=== PATIENT | female | born 1960 | race Caucasian/White ===

== ENCOUNTER 2018-10-17 06:43 | Observation (INO) | payer OTHER ==
--- NOTE | 2018-10-14 14:33 | EKG ---
[place] [address] [facility] [place] [address] ELECTROCARDIOGRAM REPORT Name: LATOYAABNER Room #: PRE IN ..#: [id number] ������������������ Admission: ������������������ Attend Phys: Michael Baron MD Discharge: ������������������ Date of : 64 Report #: [id number] ����������������������������������������������������������������� [id number] THIS REPORT FOR: //name// [facility] Test Date: 2018-10-14 Test Time: 13:43:21 Pat Name: ABNER KLEIN Department: Room: Gender: F Director Of Clinical Services: Alfonso PALOMO : 1960 Requested By: Michael Baron Order Number: [id number] MD: Maxwell Ewing Measurements Intervals [place] Rate: 67 P: 55 WV: 119 QRS: 28 QRSD: 98 T: 51 QT: 368 QTc: 389 Interpretive Statements Sinus rhythm Borderline short WV interval No previous ECG available for comparison Electronically Signed On 10-14-2018 14:32:52 CDT by Maxwell Ewing [email or web address] ��������������������������������������������� <ELECTRONICALLY SIGNED> ���������������������������������������� By: Maxwell Ewing MD ��������������������������������������������� 10/14/18 1432 1343 1343 Maxwell Ewing MD /SAUL
[~2018-10-17] VITALS: Ht 152.4 cm; Wt 81.6 kg
--- NOTE | ~2018-10-17 | O ---
[facility] [place] [place] [address] OPERATIVE REPORT Name: ABNER KLEIN Room #: 150-13 [facility]#: [id number] Admission: 10/17/18 ������������������ Attend Phys: Michael Baron MD Discharge: ������������������ Date of : 64 Report #: [id number] THIS REPORT FOR: //name// CC: Salma Baron DATE OF SERVICE: 10/17/2018 PREOPERATIVE DIAGNOSIS: Right knee osteoarthritis. POSTOPERATIVE DIAGNOSIS: Right knee osteoarthritis. PROCEDURE: Right total knee arthroplasty using Navio robotic assistance. SURGEON: Michael Baron MD. EDI DEVELOPER: Devika George PA-C. ANESTHESIA: LMA with an adductor canal block. INDICATION FOR EDI DEVELOPER: Throughout the case extensive retraction and manipulation of the knee was required. This was afforded to me by my food service assistant. IMPLANTS: Dodd and Nephew size 4 Journey II BCS Oxinium femur, a size 2 tibia, a size 32 patella and a size 10 polyethylene. TOURNIQUET TIME: 57 minutes. ESTIMATED BLOOD LOSS: 25 mL. COMPLICATIONS: None. SPECIMENS: None. CONDITION UPON LEAVING THE OPERATING ROOM: Stable. INDICATION FOR PROCEDURE: The patient is a 58-year-old female with right knee osteoarthritis. She has failed conservative measures for this and after discussion with her, she elected for right total knee arthroplasty. DESCRIPTION OF PROCEDURE: Risks, benefits, alternatives and complications were discussed in detail with the patient including but not limited to risk of anesthesia, risk of damage to nerves, arteries, blood vessels, risk for infection, bleeding, risk for continued knee pain and need for reoperation. Informed consent was obtained from the patient. The right knee was appropriately marked in the preoperative holding area. Adductor canal block was [facility] [address] [place] [address] OPERATIVE REPORT Name: ABNER KLEIN Room #: 150-13 [facility] Binu#: [id number] Admission: 10/17/18 ������������������ Attend Phys: Michael Baron MD Discharge: ������������������ Date of : 64 Report #: [id number] placed by anesthesia. IV Ancef was given for preoperative antibiotics. She was brought to the operating room and placed in the supine position on the operating room table. LMA anesthesia was induced without complication. Tourniquet was placed on the right thigh. Right lower extremity was prepped and draped in normal sterile fashion. Timeout was performed properly identifying the patient and procedure as well as the instrumentation and implants. All in the operating room were in agreement. Right lower extremity was exsanguinated, tourniquet was inflated. Tourniquet time was 57 minutes. Standard midline approach to the knee was made with 10 blade through the skin. Dissection was taken down sharply to the fascia and deep flaps were developed medially and laterally. Fresh 10 blade was used to make a medial parapatellar arthrotomy and the knee was inspected. There was severe tricompartmental osteoarthritis. ACL and PCL were removed sharply. Reference pins were placed in the femur and the tibia. The knee was digitally mapped using the Quantum robotic system. We sized the size 4 femur and a size 2 tibia with a 10 polyethylene spacer. After acceptance of the intraoperative plan, the distal femoral cut was made with a Navio bur. The femoral cutting block was then pinned in place and the femoral cuts were made. Attention was then turned to the tibia. The remainder of the menisci removed with Bovie cautery. Tibial resection guide was pinned in place using the Navio assistance for placement and tibial resection was made. After this, flexion and extension gaps were checked and found to have good balance in flexion and extension both medially and laterally. Tibia was sized and found to be a size 2. A size 2 tibial trial was placed, pinned and punched. A size 4 femoral trial was placed and the box cut was made. This was then trialed with a size 9 and then a size 10 polyethylene. Size 10 polyethylene had a mm laxity medially and laterally throughout range of motion both digitally as well as manually. The 9 mm was taken off the posterior surface of the patella and a size 32 patellar trial button was placed. Knee was taken through range of motion, found to be stable, found to have good patellar tracking. After this, trial components were removed. Bony ends were thoroughly irrigated with normal saline. A final size 2 tibia and size 4 Journey II BCS Oxinium femur and a size 32 patella were cemented in place using standard cementation techniques. While the cement cured, a periarticular injection consisting of morphine, ropivacaine, epinephrine and Toradol was placed around the knee joint capsule. After the cement cured, the tourniquet was deflated. Consent was obtained with Bovie cautery. Final size 10 polyethylene was placed. A gram of vancomycin was placed deep in the joint. The fascia was closed with 0 Vicryl, skin was closed with 2-0 Vicryl, 3-0 Monocryl. Dermabond and TAHRI dressing was applied. The patient tolerated this procedure well and went to the recovery room under care of Anesthesia postoperatively. ��������������������������������������������� ���������������������������������������� By: ��������������������������������������������� 1609 1638 Michael Baron MD /yuri
[~2018-10-17 06:43] MED LIST: ASPIRIN325 PO; MULTIVITAMINS PO
[2018-10-17 12:49] VITALS: BP 146/77
[2018-10-17 17:36] VITALS: BP 115/73
--- NOTE | 2018-10-17 18:16 | NUR ---
PATIENT ADMITTED TO ROOM 417, ORDER DR. GARSIA, POST-OP RIGHT KNEE REPLACEMENT. LIMB ALERT, RIGHT SIDE, HX OF LUMPECTOMY 2010. PAIN RATED 4 AT THIS TIME. IV FLUID ORDERED D-08/18 AT 100/CC HOUR. ALSO HAS MULTIPLE MEDICATIONS ORDERED, SEE MAR. PATIENT REGULAR DIET, EATING DINNER AT THIS TIME.
[2018-10-17 18:39] VITALS: BP 104/61
[2018-10-17 23:43] VITALS: BP 112/62
--- NOTE | 2018-10-18 03:46 | NUR ---
ASSUMED CARE AT 1900, ASSESSMENT COMPLETED. PT VERY DROWSY, BUT AROUSEABLE AND ABLE TO ANSWER ALL QUESTIONS. REPORTS MILD NUMBNESS IN RLE R/T NERVE BLOCK, PAIN IS A 4 OF 10; TAHIR DRESSING TO RIGHT KNEE IS C/D/I, NO DRAINAGE PRESENT ON DRESSING. MINIMAL SWELLING OR REDNESS NOTED IN RIGHT KNEE, ICE PACK IN PLACE. TETO HOSE AND SCD'S ON. IV FLUIDS INFUSING. PT DENIES NAUSEA OR SOB. DID NOT FEEL URGE TO URINATE, BLADDER SCAN EARLY IN SHIFT SHOWED ABOUT 300 ML; PT HAS SINCE BEEN UP TO BSC TWICE AND VOIDED ABOUT 300 ML EACH TIME. NO OTHER CONCERNS, WILL CONTINUE TO MONITOR.
[2018-10-18 04:13] VITALS: BP 114/60
[2018-10-18 06:05] LABS: HEMATOCRIT 38.9 % (37.0-47.0); MCH 31.4 pg (26.0-34.0); MCHC 33.5 g/dL (28.0-37.0); MCV 93.8 fL (80.0-100.0); RBC 4.15 mil/uL (4.20-5.00); RDW 12.8 % (10.5-14.5); WBC 17.2 thou/uL (4.0-11.0)
[2018-10-18 07:16] VITALS: BP 110/60
[2018-10-18 08:00] VITALS: BP 110/60
[2018-10-18 12:00] VITALS: BP 110/60
--- NOTE | 2018-10-18 14:24 | NUR ---
ASSESSMENT-PT LIVES IN AN APT ALONE. SHE HAS HER BROTHER IN THE AREA. PT SAYS SHE HAD AN OUTPT THERAPY APPT AT [facility] TODAY BUT HAD TO CANCEL IT TODAY. PT WILL CALL TO RESCHEDULE. PT HAS A ROLLER WALKER ALREADY. PT VOICES NO OTHER DC CONCERNS AT THIS TIME. FOLLOWING TO ASSIST WITH DC PLANNING.
[2018-10-18 15:02] VITALS: BP 110/60
--- NOTE | 2018-10-18 16:06 | NUR ---
PATIENT DOING WELL TODAY. VOIDING WITHOUT DIFFICULTY AND IN ADEQUATE AMOUNTS. PAIN WELL CONTROLLED. TOLERATING REGULAR DIET. DRINKING LOTS OF LIQUIDS. ICE PACK IN PLACE TO RT KNEE. TAHIR DRESSING TO RT KNEE C/D/I AND COMPRESSED. PATIENT TOLERATED PHYSICAL THERAPY WELL WITH USE OF WALKER. STANFORD GARCIAS CALLED TO OK DISCHARGE AFTER THERAPY TODAY. CLAUDE OK'D DISCHARGE. DISCHARGE INSTRUCTIONS GIVEN. PATIENT'S DTR STAYING WITH HER AT HOME FOR A FEW DAYS. DISMISSED IN GOOD CONDITION.
[2018-10-18 16:10] VITALS: BP 110/60
== END 2018-10-18 16:28 | disposition home or self-care (01) ==
LOC: 4E 06:43 → OR 06:43 → TBA 06:43 → PRE 08:08 → EDSTATUS 15:03 → OR 15:05 → 4E 17:29 → OR 17:56 → 4E 17:57 → ENTRNSPT 10-18 15:27 → EDTRNSPTSTS 10-18 15:29 → 4E 10-18 16:28
PROVIDERS: ADMIT Orthopaedic Surgery
DX: M17.11 Unilateral primary osteoarthritis, right knee (principal); Z88.5 Allergy status to narcotic agent; Z88.8 Allergy status to other drugs, medicaments and biological substances
CPT/HCPCS: 50010; 50101; 50415; 50954; 51130; 51225; 51771; 53000; 53078; 54118; 55372; 56527; 56528; 57095; 57103; 57110; 57127; 57180; 62110; 62900; 70005

== ENCOUNTER 2019-02-21 08:15 | Inpatient (IN) | payer OTHER ==
[~2019-02-21] VITALS: Ht 165.1 cm; Wt 77.1 kg
[2019-02-21] VITALS (15 sets, daily range): BP systolic 110–153; BP diastolic 55–83
--- NOTE | ~2019-02-21 | D ---
[facility] [place] [address] DISCHARGE SUMMARY Name: ABNER KLEIN Room #: 206-P ADM IN M.R.#: [id number] Admission: 02/21/19 Attend Phys: Mick Moy MD Discharge: Date of : 64 Report #: [id number] THIS REPORT FOR: //name// CC: Salma Moy DATE OF SERVICE: 02/22/2019 ADMITTING DIAGNOSIS: Acute inferior wall myocardial infarction. DISCHARGE DIAGNOSES: 1. Acute inferior wall myocardial infarction. 2. Coronary artery disease. 3. Hypertension. 4. Dyslipidemia. 5. Tobacco dependence. PROCEDURES PERFORMED: 1. Left heart catheterization. 2. Percutaneous transluminal coronary angioplasty and stenting of the right coronary artery. DISCHARGE DIET: [employer] step 1 diet. DISCHARGE MEDICATIONS: Atorvastatin 40 mg daily, aspirin 325 mg daily, Effient 10 mg daily, lisinopril 2.5 mg at bedtime. FOLLOWUP: 1. Dr. Moy in 4 weeks. 2. Jeff nurse practitioner in 7 days. BRIEF CLINICAL HISTORY: See history and physical in the chart. HOSPITAL COURSE: The patient was admitted directly from the Emergency Room with acute inferior wall myocardial infarction. She was taken to the finishing lab technician emergently and underwent percutaneous transluminal coronary angioplasty and stenting of the right coronary artery. Post-procedure, she remained electrically and hemodynamically stable with preserved ejection fraction by echocardiography. She was started on medications, according to the appropriate guidelines, which she tolerated well. She denied any significant recurrent symptomatology while ambulating. She remained electrically and hemodynamically stable. She requested to go home and in view of electrical stability and no significant recurrent symptomatology, she is being discharged to home in [facility] [address] [place] [address] DISCHARGE SUMMARY Name: ABNER KLEIN Room #: 206-P ADM IN M.R.#: [id number] Admission: 02/21/19 Attend Phys: Mick Moy MD Discharge: Date of : 64 Report #: [id number] improved and stable condition to follow up with previously stated discharge instructions and medications. By: 1536 1706 Dequan Cordoba MD /nt
[2019-02-21 08:33] LABS: BASOPHILS 0.8 % (0.0-2.0); EOSINOPHILS 0.9 % (0.0-3.0); HEMATOCRIT 45.9 % (37.0-47.0); HEMOGLOBIN 15.1 gm/dL (12.0-15.0); LYMPHOCYTES 51.4 % (24.0-44.0); MCH 30.5 pg (26.0-34.0); MCV 92.4 fL (80.0-100.0); MONOCYTES 5.8 % (1.0-8.0); PLATELET COUNT 273 thou/uL (150-400); POLYS 41.1 % (36.0-66.0); RBC 4.96 mil/uL (4.20-5.00); RDW 13.9 % (10.5-14.5); WBC 9.6 thou/uL (4.0-11.0)
[2019-02-21 08:40] LABS: ANION GAP 11 mmol/L (7-16); BUN 14 mg/dL (7-18); CALCIUM 9.8 mg/dL (8.5-10.1); CHLORIDE 102 mmol/L (98-107); CO2 25 mmol/L (21-32); CREATININE 1.2 mg/dL (0.6-1.0); GLUCOSE 177 mg/dL (74-106); POTASSIUM 3.5 mmol/L (3.5-5.1); SODIUM 138 mmol/L (136-145)
[2019-02-21 08:49] LABS: TROPONIN-I <0.06 ng/mL (<0.06)
[2019-02-21] MEDS ORDERED: ALLEGRA-D 24 H1 EACH PO (11:33)
--- NOTE | 2019-02-21 13:30 | CATHLAB ---
[facility] [address] [place] [address] INVASIVE PROCEDURE REPORT Name: ABNER KLEIN Room #: 206-P ADM IN .R.#: [id number] Admission: 02/21/19 Attend Phys: Mick Moy MD Discharge: Date of : 64 Report #: [id number] THIS REPORT FOR: //name// APPROVED REPORT Study performed: 02/21/2019 08:40:49 Patient Details Patient Status: In-Patient Room #: The patient is a 59 year-old female Event Personnel Shaggy Ureña RN, Mick Moy Manager Book, Angela Sanders RN RN, Amarilis Del Rosario, Karolina Pineda RTR ScrubCalvin Sherra RTR Scrub, Mick Moy Manager Book Procedures Performed Art Access - R femoral artery* 11248 Initial Mod Sed Same Phys/QHP Gr5y 550213 11453 Mod Sed Same Phys/QHP Ea [id number] Left Heart Cath w/or w/o Coronaries [id number] [facility] CARLEY Revasc AMI Total/Sub Single RCA C9606 AMIREVSING Hemostasis w/ Mynx Indication STEMI (>0 to less than or equal to 6 hours), Dyspnea Risk Factors Obesity, Hypercholesterolemia, Hypertension, Tobacco History () Procedure Narrative The patient was brought emergently to the Cardiac Catheterization Laboratory and was prepped and draped in a sterile manner. The Right Groin^ was infiltrated with 1% Lidocaine subcutaneous anesthesia. A PINNACLE 6FR Sheath #[id number] sheath was inserted into the RFA^. Coronary angiography was performed using coronary diagnostic catheters. The right coronary system was accessed and visualized with a VISTA 6FR JR 4 #[id number] catheter. The left coronary system was accessed and visualized with a JL 4 catheter. The left ventricle was accessed and visualized with a Pigtail catheter. Left ventricular/Aortic Valve gradient assessed via catheter pullback. Left ventriculogram was performed in RITCHIE projection. Pre-demployment femoral angiogram was performed . Closure device was deployed with a 6 Fr Mynx. The patient tolerated the procedure well and there were no complications associated with the procedure. [place] [address] INVASIVE PROCEDURE REPORT Name: ABNER KLEIN Room #: 206-P [facility] IN ..#: [id number] Admission: 02/21/19 Attend Phys: Mick Moy MD Discharge: Date of : 64 Report #: [id number] hematoma. Intraoperative Conscious Sedation Sedation start time: 08:41 Case end Time: 09:40 Versed 2 mg Fluoro Time: 12.29 minutes Dose: DAP 77966.00 cGycm2 1636 mGy Contrast Type and Amount: Visipaque 290 ml Coronary Angiography The patient's coronary anatomy is right dominant. Diagnostic Cath Left Main This is a large caliber vessel, patent with no flow-limiting lesions. LAD This is a moderate size caliber vessel, tortuous as it traverses the anterior wall and wraps around the apex. There is mild to moderate disease in the mid segment, 30-50%. Diagonal 1 This is a patent vessel, with no flow-limiting lesions. Circumflex This is a patent vessel, supplies one OM vessel. OM1 There is mild disease in the proximal segment. Right Coronary This is a dominant vessel with mild to moderate diffuse disease in the proximal segment, 30-40%. At the distal segment just before the bifurcation, there is a total occlusion. R PDA This is a patent vessel, with no flow-limiting lesions. RPLV There are 2 moderate size RPL branches, with no flow-limiting lesions. Left Ventriculography The left ventricle is mildly dilated in size with decreased contractility. The left ventricular ejection fraction is estimated to be 35%. There is hypokinesis of the inferior wall. Hemodynamics The aortic pressure is 181/89 mmHg with a mean of 123 mmHg. The left ventricular pressure is 149/2 mmHg with a mean of mmHg. The left ventricular end diastolic pressure is 29 mmHg. PCI Technique Lesion Percutaneous coronary intervention was performed on the distal right coronary artery. The lesion stenosis prior to intervention was 100% [address] [address] INVASIVE PROCEDURE REPORT Name: ABNER KLEIN Room #: 206-P ADM IN M.R.#: [id number] Admission: 02/21/19 Attend Phys: Mick Moy MD Discharge: Date of : 64 Report #: [id number] with SAMUEL 0 flow. A VISTA 6FR JR 4 #[id number] Guide Catheter was used to engage the ostium. A Luge Wire .014 x 182CM #[id number] Interventional Guidewire was used to cross the lesion. BALLOON DILATION A Balloon catheter Euphora RX 2.75 x 12 #[id number] was inserted and inflated up to 8.00atm for 18seconds. Additional Inflation: 8.00atm for 12seconds. STENT DEPLOYMENT A drug-eluting stent RESOLUTE ANNE RX 3.0 X 15 #[id number] was inserted and inflated up to 12.00atm for 20seconds. POST STENT DEPLOYMENT BALLOON DILATION A Balloon catheter Euphora NC RX 3.0 x 8 #[id number] was inserted and inflated up to 18.00atm for 15seconds. Additional Inflation: 14.00atm for 20seconds. Final angiography reveals 5 % stenosis with SAMUEL 3 flow. Conclusion 1. Successful insertion of a drug-eluting stent into the distal RCA, extending into the proximal segment of the PDA. 2. Mild to moderate disease in the LAD and proximal RCA. 3. At least moderate segmental LV dysfunction. 4. Recommend dual antiplatelet therapy and aggressive risk factor management, including tobacco cessation. <ELECTRONICALLY SIGNED> By: Mick Moy MD 02/21/191329 29 29 Mick Moy MD /INF
--- NOTE | 2019-02-21 16:12 | EKG ---
[address] [address] ELECTROCARDIOGRAM REPORT Name: ABNER KLEIN Room #: 206-P ADM IN M.R.#: [id number] Admission: 02/21/19 Attend Phys: Mick Moy MD Discharge: Date of : 64 Report #: [id number] THIS REPORT FOR: //name// [facility] ED Test Date: 2019-02-21 Test Time: 08:18:29 Pat Name: ABNER KLEIN Department: Room: 206 Gender: F Agronomy Professor: RIANNA : 1960 Requested By: Hermilo Agarwal Order Number: [id number] MD: Sukh Santillan Measurements Intervals [place] Rate: 45 P: 58 UT: 133 QRS: 67 QRSD: 119 T: 108 QT: 407 QTc: 353 Interpretive Statements Sinus bradycardia Nonspecific intraventricular conduction delay Inferoposterior infarct, acute (RCA) Compared to ECG 10/14/2018 13:43:21 Myocardial infarct finding now present Electronically Signed On 02-21-2019 16:11:51 BREAST SPLITTER by Sukh Santillan [email or web address] <ELECTRONICALLY SIGNED> By: Sukh Santillan MD, [facility] 02/21/19 1611 7 7 Sukh Santillan MD, [facility] /EPI
--- NOTE | 2019-02-21 16:15 | EKG ---
[place] [address] [place] [address] ELECTROCARDIOGRAM REPORT Name: ABNER KLEIN Room #: 206-P ADM IN M.R.#: [id number] Admission: 02/21/19 Attend Phys: Mick Moy MD Discharge: Date of : 64 Report #: [id number] THIS REPORT FOR: //name// [facility] Test Date: 2019-02-21 Test Time: 10:12:58 Pat Name: ABNER KLEIN Department: Room: 206 Gender: F Ware Carrier: RT : 1960 Requested By: Mick Moy Order Number: [id number] MD: Sukh Santillan Measurements Intervals [place] Rate: 61 P: 65 MD: 119 QRS: 51 QRSD: 97 T: 98 QT: 411 QTc: 414 Interpretive Statements Sinus rhythm Premature ventricular complexes Inferior infarct, acute (RCA) Compared to ECG 10/14/2018 13:43:21 Ventricular ectopy is now present Inferior injury pattern is less pronounced Electronically Signed On 02-21-2019 16:15:29 FIELD SERVICE MANAGER by Sukh Santillan [email or web address] <ELECTRONICALLY SIGNED> By: Sukh Santillan MD, [facility] 02/21/19 1615 1012 101 Sukh Santillan MD, [facility] /EPI
--- NOTE | 2019-02-21 18:15 | NUR ---
PT. ARRIVED AT FLOOR AROUND 1000; AOX4; DROWSY; R. GROIN; C/D/I; ST. NO HAVING PAIN; EDUCATED ABOUT BED REST FOR 3H UNTIL 1300; ST. UNDERSTANDING; FLUIDS RUNNING AT 100ML/H; DAUGHTER AT THE BED SIDE; PT. DRAWSY; NOT ABLE TO ANSWER ALL QUESTIONS BACK; INFORMATION GOTTEN FROM DAUGHTER & CONFIRM LATER ON THE DAY BY PT.; AFTER BED REST PT. ABLE TO AMBULATE TO BATHROOM; NO C/O PAIN; NO HEMATOMA DURING ASSESSMENTS; CHECK CHARTING; VS WNL; MONITOR SHOWS SB; NO C/O HEADACHE OR DIZZINES; MONITORING; ABLE TO VOID POST CATH; ASSESSMENT CHARGED; FOLLOWING POC; WILL PASS ON REPORT;
[2019-02-22] VITALS (7 sets, daily range): BP systolic 119–145; BP diastolic 70–86
[2019-02-22 04:23] LABS: HEMATOCRIT 40.6 % (37.0-47.0); HEMOGLOBIN 13.2 gm/dL (12.0-15.0); MCH 29.7 pg (26.0-34.0); MCHC 32.5 g/dL (28.0-37.0); MCV 91.5 fL (80.0-100.0); RBC 4.43 mil/uL (4.20-5.00); RDW 13.8 % (10.5-14.5); WBC 11.3 thou/uL (4.0-11.0)
--- NOTE | 2019-02-22 04:29 | NUR ---
ASSESSMENTS CHARTED, MEDS GIVEN CHARTED. PATIENT WAS IN THE OIL RIGGER EARLIER, RECEIVED A STENT TO HER RCA. OFF BEDREST PRIOR TO SHIFT CHANGE. RIGHT GROIN SITE IS SOFT AND DRY. DENIES PAIN. ON ROOM AIR. RESTING IN BED DURING SHIFT. CONTAINER PROVIDED FOR RIGHT HEARING AIDE. PLAN OF CARE IS TO HAVE EKG DONE IN THE AM THEN POSSIBLE HOME.
[2019-02-22 04:53] LABS: ALBUMIN 3.1 g/dL (3.4-5.0); CALCIUM 9.4 mg/dL (8.5-10.1); CREATININE 0.9 mg/dL (0.6-1.0); POTASSIUM 4.2 mmol/L (3.5-5.1); TOTAL BILIRUBIN 0.5 mg/dL (<0.1-1.0); TOTAL PROTEIN 6.3 g/dL (6.4-8.2)
[2019-02-22 04:55] LABS: TROPONIN-I 86.12 ng/mL (<0.06)
--- NOTE | 2019-02-22 15:22 | 2DMMODE ---
[facility] [address] [place] [address] 2 D/M-MODE ECHOCARDIOGRAM Name: ABNER KLEIN Room #: 206-P ADM IN ..#: [id number] Admission: 02/21/19 Attend Phys: Mick Moy MD Discharge: Date of : 64 Report #: [id number] THIS REPORT FOR: //name// APPROVED REPORT Study performed: 02/22/2019 11:24:06 EXAM: Comprehensive 2D, Doppler, and color-flow Echocardiogram Patient Location: In-Patient Room #: 206 Status: routine BSA: 1.94 HR: 66 bpm Rhythm: NSR Other Information Study Quality: Fair Indications CAD Echo Enhancing Agent Indication: Endocardial border delineation Agent(s) / Amount(s) Used: Optison 2 cc 2D Dimensions IVSd: 8.24 (7-11mm) LVDd: 42.90 mm PWd: 8.75 (7-11mm) LVDs: 31.57 (25-40mm) Volumes Left Atrial Volume (Systole) Single Plane 4CH: 18.66 mL Single Plane 2CH: 22.27 mL Aortic Valve AoV Peak Caesar.: 1.43 m/s AO Peak Gr.: 8.23 mmHg AO Mean Gr.: 3.47 mmHg AO V2 Mean: 0.82 m/s AO V2 VTI: 27.63 cm Mitral Valve E/A Ratio: 0.8 [facility] [address] [place] [address] 2 D/M-MODE ECHOCARDIOGRAM Name: ABNER KLEIN Room #: 206-P ADM IN M.R.#: [id number] Admission: 02/21/19 Attend Phys: Mick Moy MD Discharge: Date of : 64 Report #: [id number] MV Decel. Time: 282.40 ms MV E Max Caesar.: 0.45 m/s MV A Caesar.: 0.57 m/s MV PHT: 81.89 ms Left Ventricle The left ventricle is normal size. Inferor and septal hypokinesis There is normal left ventricular wall thickness. Left ventricular systolic function is borderline. LVEF is 50%. Right Ventricle The right ventricle is normal size. The right ventricular systolic function is normal. Atria The left atrium size is normal. The right atrium size is normal. Aortic Valve The aortic valve is normal in structure. No aortic regurgitation is present. Mitral Valve The mitral valve is normal in structure. There is no mitral valve regurgitation noted. Tricuspid Valve The tricuspid valve is normal in structure. There is no tricuspid valve regurgitation noted. Pulmonic Valve The pulmonary valve is normal in structure. There is no pulmonic valvular regurgitation. Great Vessels The aortic root is normal in size. The ascending aorta is normal in size. IVC is normal in size and collapses >50% with inspiration. Pericardium There is no pericardial effusion. <Conclusion> The left ventricle is normal size. LVEF is 50%. The aortic valve is normal in structure. [facility] [address] [place] [address] 2 D/M-MODE ECHOCARDIOGRAM Name: ABNER KLEIN Room #: 206-P ADM IN M.R.#: [id number] Admission: 02/21/19 Attend Phys: Mick Moy MD Discharge: Date of : 64 Report #: [id number] The mitral valve is normal in structure. The tricuspid valve is normal in structure. The pulmonary valve is normal in structure. There is no pericardial effusion. <ELECTRONICALLY SIGNED> By: Dequan Cordoba MD 02/22/19 1522 1522 1522 Dequan Cordoba MD /INF
[2019-02-22] MEDS ORDERED: EFFIENT10 MG PO (16:12)
[2019-02-22] MEDS ORDERED: LIPITOR40 MG PO (16:14)
[2019-02-22] MEDS ORDERED: LISINOPRIL5 MG PO (16:15)
[2019-02-22] MEDS ORDERED: ASPIRIN325 PO (16:16)
[2019-02-22] MEDS ORDERED: NITROGLYCERIN0.4 MG SUBLING (16:23)
[2019-02-22] MEDS ORDERED: TOPROL XL25 MG PO (16:28)
--- NOTE | 2019-02-22 17:13 | NUR ---
Pt asked questions about heart cath and new stent. procedure explained, pt verbalized understanding. Dr Meadows in to see pt and do smoking cessation education. pt ambulated room and hallways with very steady gait. right groin dressing clean, dry, intact. will reinforced heart healthy education
--- NOTE | 2019-02-23 13:14 | EKG ---
[place] [address] [facility] [place] [place] [address] ELECTROCARDIOGRAM REPORT Name: ABNER KLEIN Room #: 206- DIS IN M.R.#: [id number] Admission: 02/21/19 Attend Phys: Mick Moy MD Discharge: 02/22/19 Date of : 64 Report #: [id number] THIS REPORT FOR: //name// [facility] Test Date: 2019-02-22 Test Time: 07:19:47 Pat Name: ABNER KLEIN Department: Room: 206 P Gender: F Broadcast Operations Director: Salena CLAROS : 1960 Requested By: Mick Moy Order Number: [id number] MD: Sukh Santillan Measurements Intervals [place] Rate: 53 P: 57 PA: 112 QRS: -8 QRSD: 96 T: -71 QT: 466 QTc: 438 Interpretive Statements Sinus rhythm Borderline short PA interval Inferior infarct, recent Compared to ECG 02/21/2019 10:12:58 Ventricular premature complex(es) no longer present Electronically Signed On 02-23-2019 13:14:16 [employer] by Sukh Santillan [email or web address] <ELECTRONICALLY SIGNED> By: Sukh Santillan MD, FAC 02/23/19 1314 8 8 Sukh Santillan MD, [facility] /EPI
== END 2019-02-22 18:50 | disposition home or self-care (01) | DRG 247 ==
LOC: ER 08:15 → EROBS 08:49 → 2N 10:32
PROVIDERS: Emergency Medicine; ADMIT Internal Medicine Cardiovascular Disease
PROC: 4A023N7 Measurement of Cardiac Sampling and Pressure, Left Heart, Percutaneous Approach (ICD-10-PCS; principal; 2019-02-21)
PROC: 027034Z Dilation of Coronary Artery, One Artery with Drug-eluting Intraluminal Device, Percutaneous Approach (ICD-10-PCS; principal; 2019-02-21)
PROC: B211YZZ Fluoroscopy of Multiple Coronary Arteries using Other Contrast (ICD-10-PCS; principal; 2019-02-21)
PROC: B215YZZ Fluoroscopy of Left Heart using Other Contrast (ICD-10-PCS; principal; 2019-02-21)
PROC: B41FYZZ Fluoroscopy of Right Lower Extremity Arteries using Other Contrast (ICD-10-PCS; principal; 2019-02-21)
DX: I21.19 ST elevation (STEMI) myocardial infarction involving other coronary artery of inferior wall (principal); Z96.659 Presence of unspecified artificial knee joint; I10 Essential (primary) hypertension; E78.5 Hyperlipidemia, unspecified; I25.10 Atherosclerotic heart disease of native coronary artery without angina pectoris; Z88.6 Allergy status to analgesic agent; Z88.8 Allergy status to other drugs, medicaments and biological substances; Z71.6 Tobacco abuse counseling; Z79.899 Other long term (current) drug therapy
CPT/HCPCS: 10081

== ENCOUNTER → 2021-04-21 | Outpatient (CLI) | payer OTHER ==
[~2021-04-21] MED LIST changes: +ALLEGRA-D 24 H1 EACH PO; +EFFIENT10 MG PO; +LIPITOR40 MG PO; +LISINOPRIL5 MG PO; +NITROGLYCERIN0.4 MG SUBLING; +TOPROL XL25 MG PO
== END ==
LOC: SJCVCIMAG 07:58
PROVIDERS: ATTEND Internal Medicine Cardiovascular Disease
DX: I34.0 Nonrheumatic mitral (valve) insufficiency (principal); I25.10 Atherosclerotic heart disease of native coronary artery without angina pectoris